=== PATIENT | female | born 1960 | race Caucasian/White ===

== ENCOUNTER → 2019-04-27 08:58 | Outpatient (BNVA) | payer BC, SELFPAY | PROVIDERS: Family Provider Registered Nurse; Visit Provider Specialist | DX: G43.909 Migraine, unspecified, not intractable, without status migrainosus (principal) | CPT/HCPCS: 99214 ==

== ENCOUNTER 2019-05-19 10:55 | Outpatient (CLI) | payer BC, SELFPAY ==
--- NOTE | 2019-05-19 11:39 | MR_ITS ---
WS: [id number] MRI CERVICAL SPINE NONCONTRAST TECHNIQUE: Sagittal T1, T2 and STIR imaging. Axial T2, gradient, and fiesta imaging. CLINICAL INFORMATION: SPINAL STENOSIS, CERVICAL REGION COMPARISON: None. FINDINGS: Straightening of the normal cervical lordosis. Disc bulging worse at C4-C6. Cord signal is normal. No high-grade central canal narrowing. C2-C3: Normal. C3-C4: Mild disc bulging and osteophytic ridging. Moderate left and no significant right foraminal na rrowing. Moderate left facet arthropathy. Spinal canal is patent. C4-C5: Mild disc osteophyte complex with endplate ridging. Tiny central protrusion. Moderate left and no significant right foraminal narrowing. Moderate left facet arthropathy. Mild central canal stenos is. C5-C6: Disc osteophyte complex with endplate ridging. Mild central canal stenosis. Mild right greater than left foraminal narrowing. C6-C7: Disc osteophyte complex with endplate ridging. Mild central canal stenosis. Mild bilateral bon y foraminal narrowing. Mild facet arthropathy. C7-T1: No significant disc bulging. Mild bilateral bony foraminal narrowing. Spinal canal is patent. Small central disc protrusion T3-4 with slight effacement of ventral thecal sac. Spinal canal and for amen are patent. Left thyroid nodule measures 1.9 cm. MR/MR cervical spin wo con* [id number] IMPRESSION: 1. Straightening of the normal cervical lordosis with small central protrusion s C4-C6. 2. Mild central canal stenosis C4-C5 C5-C6 and C6-C7 due to small shallow disc osteophyte protrusions. 3. Mild to moderate bony foraminal narrowing worse at left C3-C4, left C4-C5, right C5-C6. 4. Heterogeneous left thyroid nodule measuring 1.9 CM. This can be followed up with ultrasound.
== END 2019-05-19 10:56 | disposition home or self-care (01) ==
LOC: RADWPI 11:34 → RADSHAW 11:37
PROVIDERS: Family Provider Registered Nurse; PCP Nurse Practitioner Family; Visit Provider Anesthesiology Pain Medicine
DX: M48.02 Spinal stenosis, cervical region (principal); E04.1 Nontoxic single thyroid nodule
CPT/HCPCS: 72141

== ENCOUNTER 2019-08-10 10:38 | Observation (INO) | payer BC, MEDICARE, SELFPAY ==
[2019-08-09 08:55] VITALS: BMI 36.8
[2019-08-10] VITALS (12 sets, daily range): BP systolic 139–162; BP diastolic 68–114; PULSE 69–97; RESP 13–20; TEMP 36.2–36.7; O2SAT 92–99
--- NOTE | 2019-08-10 | XR_ITS ---
WS: [id number] INTRAOPERATIVE TECHNIQUE: 4 Spot fluoroscopic images for intraoperative purposes. FLUOROSCOPY TIME: 65.8 seconds CLINICAL INFORMATION: DORSAL COLUMN STIMULATOR COMPARISON: None. FINDINGS: Dorsal spinal stimulator in the upper cervical spine XR/XR cervical spine 3V* [id number] IMPRESSION: Images obtained for intraoperative purposes.
--- NOTE | 2019-08-10 | SCC_ITS ---
Done: Laminectomy for placement of cervical epidural paddle electrode arrays, and placement of subcutaneous programmable pulse generator. 151.6 seconds of fluoroscopic guidance, for a cumulative dose of 27.29 mGy, was provided to Dr. Toussaint by the radiology department. C-arm images of the c-spine were saved for the patient's permanent record. [facility]
[2019-08-10] MEDS: sodium chloride 0.9% 1,000 ML 30 ML IV (06:22)
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
--- NOTE | 2019-08-10 06:53 | W.PM.OPSUD ---
Surgery/Procedure H&P Update DATE OF PROCEDURE: August 10, 2019 DATE H&P PERFORMED: 08/04/19 H&P UPDATE INFORMATION: I have reviewed H&P completed within last 30 days and H&P to be scanned into chart PREOP DIAGNOSIS: Cervical disc disorder with myelopathy PRIMARY INDICATION FOR PROCEDURE: Pain PLANNED PROCEDURE: Operation Date: 08/10/19 07:00 Proposed Procedures Cervical spinal cord Stimulator Implantation via laminectomy [id number] M50.020(Not Applicable) - Ellis Toussaint MD
--- NOTE | 2019-08-10 07:07 | P.OP_ITS ---
Brief Operative Note: Date of procedure: 08/10/19 Pre-op diagnosis: Intevertebral disc disorder with myelopathy, cervical Post-op diagnosis: same Procedure Done: Laminectomy for placement of cervical epidural paddle electrode arrays, and placement of subcutaneous programmable pulse generator. Surgeon: Ellis Toussaint Estimated blood loss (mL): 10 Complications: None Post-op Plan: PACU, then griggs. Condition: stable Disposition: PACU Coding Level of Care Code Acute Protection Specialist for [place] Yeager
[2019-08-10] MEDS: vancomycin 1,000 MG in sodium chloride 0.9% 250 ML 250 MG IV (07:20)
[2019-08-10] MEDS: thrombin 5,000 unit SDV 5000 UNIT XX ×2 (08:22→11:03)
--- NOTE | 2019-08-10 09:44 | SUR.OPER ---
Family Notified Of Patient's Status Via Phone.
[2019-08-10] MEDS: neomycin-poly-bacitracin oint 28 gm 1 APPLIC TOPICAL (10:20)
--- NOTE | 2019-08-10 10:49 | SUR.OPER ---
Family Notified Of Patient's Status Via Phone.
--- NOTE | 2019-08-10 12:01 | SUR.OPER ---
Family Notified Of Patient's Status Via Phone.
--- NOTE | 2019-08-10 12:59 | SUR.OPER ---
Family Notified Of Patient's Status Via Phone.
--- NOTE | 2019-08-10 14:02 | SUR.OPER ---
Family Notified Of Patient's Status Via Phone.
[2019-08-10] MEDS: ketorolac 30 mg/mL INJ IVP ×2 (16:38→21:52)
[2019-08-10] MEDS: ondansetron 2 mg/ML SDV 2 mL 4 MG IVP (16:40)
[2019-08-10] MEDS: levofloxacin-dextrose 5 % 750 MG/150 ML PREMIX 100 MG IV (16:44)
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
[2019-08-10] MEDS: docusate sodium 100 mg Capsule PO (18:35)
[2019-08-10] MEDS: lactated ringers 1,000 ML 90 ML IV (18:46)
[2019-08-10] MEDS: HYDROcodone-acetaminophen 5-325 mg Tablet PO (21:26)
[2019-08-11] VITALS: BP 138/80; PULSE 90; RESP 18; TEMP 36.6; O2SAT 92
[2019-08-11] MEDS: HYDROcodone-acetaminophen 5-325 mg Tablet PO (01:38)
[2019-08-11] MEDS: ketorolac 30 mg/mL INJ IVP ×2 (03:59→08:36)
[2019-08-11] MEDS: lactated ringers 1,000 ML 90 ML IV (04:04)
[2019-08-11 04:26] VITALS: BP 171/98; PULSE 91; RESP 18; TEMP 36.7; O2SAT 92
[2019-08-11 07:34] VITALS: BP 165/92; PULSE 83; RESP 19; TEMP 36.7; O2SAT 91
[2019-08-11] MEDS: docusate sodium 100 mg Capsule PO (08:36)
[2019-08-11] MEDS: pantoprazole DR 40 mg Tablet PO (08:36)
[2019-08-11] MEDS: amlodipine 5 mg Tablet PO (08:36)
[2019-08-11] MEDS: mirtazapine 15 mg Tablet PO (08:36)
[2019-08-11] MEDS: hydroCHLOROthiazide 25 mg Tablet PO (08:36)
--- NOTE | 2019-08-11 08:43 | PC.NURSE ---
Patient's dressing change to back per Dr. Toussaint. Patient told to leave dressing X 2 for next two days. Told to keep dressing dry. Appointment to have sutures need to be made. PT to put new collar on patient. Patient to wear collar for next two weeks. No straining, no weight over 10 pounds. Restrict reaching up, and pulling. Patient reviewed settings recommendation with patient. Patient verbalized understanding of D/C planning.
--- NOTE | 2019-08-11 10:17 | PC.CHAP ---
Pastoral Care Encounter/Spiritual Assessment Type of Contact [] Declined project superintendent visit [] Patient/Family/Request visit [] Outpatient visit [] Follow-up visit [] Physician referral [] Code/Alert [x] Routine visit [] Staff referral [] Actively dying [] Patient sleeping [] Family support [] [] Out of room [] Palliative care [] [] Receiving care in room [] Pre-surgical visit [] Trauma [] Long length of stay [] ICU visit [] Other: Relational/Emotional Strength [] Patient feels connected with others/family/visitors/staff [] Distress [] Loneliness/isolation [] Abandonment Spirituality of Patient [x] Person of Sue [] Attends Adventist of their Sue [x] Believes in Prayer [] Reads Bible or Lutheran materials [] There are Spiritual issues to be addressed Diabetes Educator Interventions [x] Prayer [] Active listening [] Non-anxious presence [] Spiritual/emotional support [] Crisis/trauma care [] Spiritual counseling [] Bereavement support [] Provided bereavement packet [] Provided Bible/devotional materials [] Provided toy/stuffed animal, coloring book to patient or family member [] Provided Communion [] Anointing/[place] [] Salvation [x] Completed spiritual assessment [] Other: Impact on Illness or Injury [] Angry [] Fearful [] Anxious [] Often cries [] Exhaustion [] Unable to work [] Unable to attend christianity [] Unable to walk/stand [] Unable to read [] Unable to drive [] Unable to eat/drink [] Unable to sleep [] Unable to be with family [] Patient intubated [] Other: Summary Patient such a positive person. surgery completed- brace in place and she is ready to return home. Time spent with patient 20 min
[2019-08-11 11:16] VITALS: BP 157/94; PULSE 89; RESP 20; TEMP 36.9; O2SAT 93
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
[2019-08-11 12:01] VITALS: BP 157/94; PULSE 89; RESP 20; TEMP 36.9; O2SAT 93
--- NOTE | 2019-08-11 18:27 | PC.NURSE ---
Patient was d/c to home. Prescription for Hydrocodone/apap was not sent with patient. Prescription was left in patients chart. [facility] was not able to fill script. Dr. Toussaint was called and was informed. He did not give new orders at that time. Dr. Toussaint's office staff was called previously and was gone for the day. [employer] Executive Director Carmen Anaya called Dr. Toussaint and left message for him to call her in regards to patient's medication.
== END 2019-08-11 12:03 | disposition home or self-care (01) ==
LOC: MEDSURG 10:38
PROVIDERS: Admitting Provider Specialist; PCP Nurse Practitioner Family; Visit Provider Specialist
PROC: (CPT 63655; principal; 2019-08-10 07:00)
DX: M50.020 Cervical disc disorder with myelopathy, mid-cervical region, unspecified level (principal); I10 Essential (primary) hypertension; K21.9 Gastro-esophageal reflux disease without esophagitis; E66.01 Morbid (severe) obesity due to excess calories; Z68.36 Body mass index [BMI] 36.0-36.9, adult
CPT/HCPCS: 63655; 63685; 12345; 72040; 76000; 96361; 96365; 96366; 96375; 97760; C1778; C1820; C1883; G0378; J1885; J1956; J2001; J2250; J2270; J2405; J2704; J3010; J3370; J3490; J7030; J7050; L0172; L0174

== ENCOUNTER 2019-09-12 17:10 | Outpatient (CLI) | payer BC, MEDICARE, SELFPAY | END 2019-09-12 17:11 | disposition home or self-care (01) | LOC: LAB 17:12 | PROVIDERS: PCP Nurse Practitioner Family; Visit Provider Licensed Practical Nurse | DX: T14.8XXA Other injury of unspecified body region, initial encounter (principal); X58.XXXA Exposure to other specified factors, initial encounter | CPT/HCPCS: 87070; 87205 ==

== ENCOUNTER → 2019-10-09 10:50 | Outpatient (BNVA) | payer BC, MEDICARE, SELFPAY | PROVIDERS: PCP Nurse Practitioner Family; Visit Provider Licensed Practical Nurse | DX: Z98.890 Other specified postprocedural states (principal); T81.89XA Other complications of procedures, not elsewhere classified, initial encounter; Y83.8 Other surgical procedures as the cause of abnormal reaction of the patient, or of later complication, without mention of misadventure at the time of the procedure | CPT/HCPCS: 84450; 87070 ==

== ENCOUNTER → 2019-10-31 09:50 | Outpatient (BNVA) | payer BC, MEDICARE, SELFPAY | PROVIDERS: PCP Nurse Practitioner Family; Visit Provider Licensed Practical Nurse | DX: Z98.890 Other specified postprocedural states (principal) | CPT/HCPCS: 99024 ==

== ENCOUNTER → 2019-11-08 10:49 | Outpatient (BNVA) | payer BC, MEDICARE, SELFPAY | PROVIDERS: PCP Nurse Practitioner Family; Visit Provider Licensed Practical Nurse | DX: Z98.890 Other specified postprocedural states (principal) | CPT/HCPCS: 99024 ==

== ENCOUNTER → 2019-11-15 10:48 | Outpatient (BNVA) | payer BC, MEDICARE, SELFPAY | PROVIDERS: PCP Nurse Practitioner Family; Visit Provider Licensed Practical Nurse | DX: Z98.890 Other specified postprocedural states (principal) | CPT/HCPCS: 99024 ==

== ENCOUNTER → 2019-11-22 11:45 | Outpatient (BNVA) | payer BC, MEDICARE, SELFPAY | PROVIDERS: PCP Nurse Practitioner Family; Visit Provider Licensed Practical Nurse | DX: Z98.890 Other specified postprocedural states (principal) | CPT/HCPCS: 99024 ==

== ENCOUNTER → 2020-01-16 11:16 | Outpatient (BNVA) | payer OTHER, MEDICARE, SELFPAY | PROVIDERS: PCP Nurse Practitioner Family; Visit Provider Licensed Practical Nurse | DX: M50.020 Cervical disc disorder with myelopathy, mid-cervical region, unspecified level (principal); T81.89XA Other complications of procedures, not elsewhere classified, initial encounter; Z98.890 Other specified postprocedural states; X58.XXXA Exposure to other specified factors, initial encounter | CPT/HCPCS: 99213 ==

== ENCOUNTER → 2020-03-05 10:55 | Outpatient (BNVA) | payer OTHER, SELFPAY | PROVIDERS: PCP Nurse Practitioner Family; Visit Provider Licensed Practical Nurse | DX: T81.89XD Other complications of procedures, not elsewhere classified, subsequent encounter (principal); X58.XXXD Exposure to other specified factors, subsequent encounter; Z98.890 Other specified postprocedural states | CPT/HCPCS: 99214 ==